=== PATIENT | male | born 1995 | race Caucasian/White ===

== ENCOUNTER 2025-03-03 19:52 | Emergency (ER) | payer OTHER ==
[~2025-03-03] VITALS: Ht 188 cm; Wt 101.3 kg
[2025-03-03 20:37] LABS: BASO # 0.01 K/mm3 (0.02-0.10); EOS # 0.04 K/mm3 (0.04-0.40); EOS % 0.5 % (0.0-4.0); HEMOGLOBIN 15.9 g/dL (13.5-18.0); MEAN CELL VOLUME 88 fl (78-100); MEAN CORPUSCULAR HEMOGLOBIN 30 pg (27-31); MEAN CORPUSCULAR HGB CONC 35 g/dL (33-37); MEAN PLATELET VOLUME 10.5 fl (7.4-10.4); MONO # 0.67 K/mm3 (0.20-0.80); NEU # 5.64 K/mm3 (1.40-6.50); PLATELET COUNT 188 K/mm3 (130-400); RED BLOOD COUNT 5.25 M/mm3 (4.20-5.60); RED CELL DISTRIBUTION WIDTH 12.4 % (11.5-14.5); WHITE BLOOD COUNT 8.9 K/mm3 (4.8-10.8)
[2025-03-03] MEDS ORDERED: NS 100 ML IV SCH (20:41)
[2025-03-03] MEDS ORDERED: Iohexol 300 - 100 ML VIAL IV ONE (20:42)
[2025-03-03 20:45] LABS: ALBUMIN 4.5 g/dL (3.5-5.0)
[2025-03-03 20:46] LABS: CALCIUM 9.3 mg/dL (8.3-10.5)
[2025-03-03 20:48] LABS: TOTAL PROTEIN 7.6 g/dL (6.4-8.3)
[2025-03-03 20:49] LABS: TOTAL BILIRUBIN 0.4 mg/dL (0.2-1.2)
[2025-03-03] MEDS ORDERED: Clindamycin 150 MG CAP PO ONE (21:30)
[2025-03-03] MEDS ORDERED: CLEOCIN HCL150 M1 PO (21:37)
[2025-03-03 21:47] VITALS: BP 135/73
== END 2025-03-03 21:47 | disposition home or self-care (01) ==
LOC: ED 19:52
PROVIDERS: Physician Assistant
DX: K62.89 Other specified diseases of anus and rectum (principal); K61.1 Rectal abscess
CPT/HCPCS: Q9967